=== PATIENT | female | born 1990 | race Asian ===

== ENCOUNTER 2023-09-05 18:05 | Inpatient (IN) ==
[2023-09-05] MEDS ORDERED: Lidocaine 1% VIAL 10 MG/ML 30 ML VIAL INJ PRN (20:03)
[2023-09-05] MEDS: miSOPROStol 100 mcg TAB ONE (20:43)
[2023-09-05 22:16] LABS: Hematocrit 38.4 % (35-45); Hemoglobin 12.9 g/dL (11.5-14.3); Mean Corpuscular Hemoglobin 30.5 pg (27-33); Mean Corpuscular Hgb Conc 33.4 g/dL (31-36); Mean Corpuscular Volume 91.1 fL (80-97); Red Blood Count 4.22 10^6/uL (3.63-4.92); Red Cell Distribution Width 14.2 % (12-17); White Blood Count 6.3 10^3/uL (3.8-11.8)
[2023-09-05 22:27] LABS: Albumin 3.7 g/dL (3.2-5.2); Globulin 3.7 g/dL (2-4); Potassium 3.9 mmol/L (3.5-5.0); Total Bilirubin 0.4 mg/dL (0.2-1.0); Total Protein 7.4 g/dL (6.4-8.9); Uric Acid 5.8 mg/dL (2.3-6.6)
[2023-09-05 22:37] LABS: Urine Benzodiazepine Screen None Detected (None Detect); Urine Cannabinoids Screen None Detected (None Detect); Urine Opiates Screen None Detected (None Detect)
[2023-09-05 22:50] LABS: ABS Lymphocytes 1.8 10^3/uL (1.0-4.8); ABS Monocytes 0.7 10^3/uL (0.0-0.9); ABS Neutrophils 3.8 10^3/uL (1.5-7.6); ABS Nucleated RBC 0.01 10^3/ul; Eosinophil % 0.6 %; Large Platelets Present; Mean Platelet Volume 11.4 fL (7.5-11.2); Nucleated Red Blood Cells % 0.2 %/100WBC (0.0-0.8); Platelet Count 124 10^3/uL (150-450)
[2023-09-05 22:54] LABS: Urine Creatinine Concentration 16.52 mg/dL (20.00-320.00); Urine TP Concentration < 5 mg/dL
[2023-09-05 22:56] LABS: Creatinine, Serum 0.51 mg/dL (0.51-0.95); eGFR CKD-EPI 124.8 (>60)
[2023-09-06] MEDS: miSOPROStol 100 mcg TAB SCH (01:39)
[2023-09-06] MEDS: Lactated Ringers 1000 ml BAG 1,000 ML IV ONE (11:02)
[2023-09-06] MEDS ORDERED: Phenylephrine 40 mcg/mL 10mL (400mcg) SYRINGE IV PUSH PRN ×2 (11:11)
[2023-09-06] MEDS ORDERED: Sodium Citrate/Citric Acid LIQ 15 ML UDC PO PRN (11:11)
[2023-09-06] MEDS ORDERED: fentaNYL 100 mcg/2 ml 50 MCG/ML VIAL ONE (11:14)
[2023-09-06] MEDS: OBEPIDURAL (200 ML) 200 ML EPIDURAL SCH (12:00)
[2023-09-06] MEDS: Lactated Ringers 1000 ml BAG 1,000 ML IV SCH (12:32)
[2023-09-06 13:06] LABS: Urine Appearance Clear; Urine Bilirubin Negative (Negative); Urine Blood Negative (Negative); Urine Color Colorless; Urine Glucose Negative (Negative); Urine Ketones Negative (Negative); Urine Nitrite Negative (Negative); Urine Protein Negative (Negative); Urine Specific Gravity 1.005 (1.002-1.030); Urine Urobilinogen Negative (Negative)
[2023-09-06] MEDS: Oxytocin in LR 20,000 MILLI.UNIT/1,000 ML BAG IV SCH (14:34)
[2023-09-07] MEDS ORDERED: Glycerin ADULT 2.4 gm SUPP PR PRN (02:29)
[2023-09-07] MEDS ORDERED: Lactated Ringers 1000 ml BAG 1,000 ML IV SCH (03:00)
[2023-09-07] MEDS: Witch Hazel PAD JAR TOPICAL PRN (04:44)
[2023-09-07] MEDS: Oxytocin in LR 20,000 MILLI.UNIT/1,000 ML BAG IV SCH (18:25)
[2023-09-07] MEDS: Lidocaine 1.5% EPI 1:200,000 30 ML SDV ONE ×2 (18:25→19:47)
[2023-09-07] MEDS: OBEPIDURAL (200 ML) 200 ML EPIDURAL ONE (19:47)
[2023-09-07] MEDS: Lactated Ringers 1000 ml BAG 1,000 ML IV SCH (19:47)
[2023-09-07] MEDS: Lactated Ringers 1000 ml BAG 1,000 ML IV ONE (19:48)
[2023-09-07] MEDS: Buffered Lidocaine 1% SYRIN 1 ml INTRADERM ONE (19:48)
[2023-09-07] MEDS: Dibucaine 1% OINT 28.35 GM TUBE PR PRN (20:04)
[2023-09-07] MEDS ORDERED: Polyethylene Glycol 3350 17 GM PACKET PO PRN (23:44)
[2023-09-08 07:25] LABS: ABS Eosinophils 0.1 10^3/uL (0.0-0.5); ABS Lymphocytes 1.4 10^3/uL (1.0-4.8); ABS Monocytes 0.8 10^3/uL (0.0-0.9); ABS Neutrophils 6.7 10^3/uL (1.5-7.6); Eosinophil % 0.7 %; Hemoglobin 9.2 g/dL (11.5-14.3); Lymphocyte % 15.6 %; Mean Corpuscular Hemoglobin 31.3 pg (27-33); Mean Platelet Volume 11.3 fL (7.5-11.2); Platelet Count 101 10^3/uL (150-450); Red Blood Count 2.94 10^6/uL (3.63-4.92); Red Cell Distribution Width 13.9 % (12-17)
[2023-09-09 07:28] VITALS: BP 128/87
== END 2023-09-09 16:44 | disposition home or self-care (01) | DRG 807 ==
LOC: MCHOBOUT 18:05 → MCHOB 21:33
PROVIDERS: ADMIT Midwife; ATTEND Midwife